=== PATIENT | female | born 1960 | race Caucasian/White ===

== ENCOUNTER → 2020-09-17 | Outpatient (CLI) | payer MEDICARE ==
[~2020-09-17] MED LIST: ARIMIDEX1 MG; AUGMENTIN 500-1 EACH PO; LORTAB 7.5-5001 EACH PO; NORCO 10-325 T1 EACH; SEROQUEL100 MG; XANAX0.5 MG; [UNRECOGNIZED DRUG - OTHER]
--- NOTE | 2020-09-17 21:35 | Diagnostic Imaging Report ---
Bone Scan, delayed phase INDICATION: Breast cancer CLINICAL INFORMATION: Left breast cancer 10 years ago; had partial mastectomy. COMPARISON: None available REPORT: Approximately 3 hours following intravenous administration of 27.5 mCi of Tc-99m MDP, delayed total body images in the anterior and posterior projections and selected spot images were obtained. The patient's bladder is full and obscures the superior pubic rami. Small foci of increased tracer activity are seen in T5 and T7 on the left and T8 and T10 on the right. An additional focus of increased tracer is seen in the right inferior pubic ramus. Otherwise, distribution of tracer activity is unremarkable throughout the skeletal system. No abnormal accumulation of tracer is seen in the soft tissues or renal collecting system. IMPRESSION: The multiple small osteoblastic lesions in the thoracic spine have an appearance more typical of metastasis than of degenerative changes. This should be confirmed on correlative imaging. The osteoblastic lesion in the right inferior pubic ramus is also worrisome for bone metastasis. Signed by: Dr. Carina Lal M.D. on 09/17/2020 9:31 PM
== END ==
LOC: NM 13:28
PROVIDERS: ATTEND Physician Assistant
DX: C50.812 Malignant neoplasm of overlapping sites of left female breast (principal)
CPT/HCPCS: 78306; A9503

== ENCOUNTER → 2021-01-29 | Outpatient (CLI) | payer MEDICARE | LOC: MRI 11:59 | PROVIDERS: ATTEND Radiology Body Imaging | DX: C50.812 Malignant neoplasm of overlapping sites of left female breast (principal); C79.51 Secondary malignant neoplasm of bone; M54.2 Cervicalgia; M54.16 Radiculopathy, lumbar region | CPT/HCPCS: 72141; 72146 ==